=== PATIENT | female | born 1990 | race Caucasian/White ===

== ENCOUNTER 2022-05-31 19:36 | Inpatient (IN) ==
[2022-05-31] MEDS ORDERED: TRANEXAMIC ACID 1,000 MG in SODIUM CHLORIDE 0.9% 100 ML IV PRN (20:49)
[2022-05-31] MEDS ORDERED: BUTORPHANOL 2 MG/ML VIAL IV PRN (20:49)
[2022-05-31] MEDS ORDERED: METHYLERGONOVINE 0.2 MG/1 ML AMP IM PRN (20:49)
[2022-05-31] MEDS ORDERED: ONDANSETRON 4 MG/2 ML VIAL IV PRN (20:49)
[2022-05-31] MEDS ORDERED: miSOPROStoL 200 MCG TABLET RECTAL PRN (20:49)
[2022-05-31] MEDS ORDERED: OXYTOCIN/LR 20 UNIT/1,000 ML BAG IV ONE (20:49)
[2022-05-31] MEDS ORDERED: CARBOPROST TROMETHAMINE 250 MCG/ML AMP IM PRN (20:49)
[2022-05-31] MEDS ORDERED: MEPERIDINE 50 MG/1 ML VIAL IV PRN (20:49)
[2022-05-31 21:00] LABS: Basophils % 0.2 % (0.0-0.8); Eosinophils # 0.1 10*3/uL (0.0-0.87); Eosinophils % 1.1 % (0.00-10.9); Hemoglobin 10.8 GM/DL (12.0-16.0); Immature Granulocytes % 0.3 %; Immature Granulocytes Absolute 0.02 #; Lymphocytes # 1.4 10*3/uL (1.4-4.0); Lymphocytes % 20.8 % (21.3-54.2); Mean Corpuscular HGB Conc 32.7 GM/DL (32-36); Mean Corpuscular Volume 85.3 FL (87-102); Mean Platelet Volume 10.9 FL (9.6-12.0); Monocytes # 0.4 10*3/uL (0.11-0.8); Monocytes % 6.5 % (1.7-12.7); Neutrophils % 71.1 % (38.7-73.9); Platelet Count 174 T/CUMM (130-400); Red Blood Count 3.87 MC/CUMM (3.8-5.5); Red Cell Distribution Width 13.6 % (9.3-17.3); White Blood Count 6.6 T/CUMM (4-12)
[2022-05-31] MEDS: diphenhydrAMINE CAP 50 MG CAPSULE PO PRN (22:21)
[2022-06-01] MEDS ORDERED: hydrOXYzine HCL 25 MG/1 ML VIAL IM PRN (02:23)
[2022-06-01] MEDS ORDERED: ePHEDrine 50 MG/ML VIAL IV PRN (02:23)
[2022-06-01] MEDS ORDERED: CITRIC ACID/SODIUM CITRATE 30 ML UDCUP PO ONE (02:23)
[2022-06-01] MEDS ORDERED: LACTATED RINGERS 1,000 ML IV ONE (02:23)
[2022-06-01] MEDS ORDERED: FAMOTIDINE 20 MG/2 ML VIAL IV ONE (02:23)
[2022-06-01] MEDS: fentaNYL 2 MCG/ROPIV 0.2% EPID 100 ML EPIDURAL SCH ×2 (04:10→11:25)
[2022-06-01] MEDS: LACTATED RINGERS 1,000 ML IV SCH ×2 (04:11→12:11)
[2022-06-01] MEDS: OXYTOCIN/LR 20 UNIT/1,000 ML BAG IV SCH ×2 (05:00→16:44)
[2022-06-01 05:25] LABS: Bilirubin,Urine Negative (Negative); Blood, Urine Negative (Negative); Glucose,Urine (UA) Negative (Negative); Ketones,Urine Negative (Negative); Mucus,Urine Occasional /LPF (Occasional); Nitrite,Urine Negative (Negative); Protein,Urine Negative (Negative); RBC,Urine 1 /HPF (0-4); Squamous Epithelial Cell,Urine Occasional /HPF (0-10); Urine Appearance Clear (Clear); Urine Color Yellow (Yellow); Urine Specific Gravity > 1.030 (1.001-1.035); Urine Urobilinogen 0.2 eU/dL (<2.0); Urine pH 6.5 (4.5-8.0)
[2022-06-01] MEDS: diphenhydrAMINE CAP 50 MG CAPSULE PO PRN (07:30)
[2022-06-01] MEDS ORDERED: miSOPROStoL 200 MCG TABLET ONE (10:27)
[2022-06-01] MEDS ORDERED: CARBOPROST TROMETHAMINE 250 MCG/ML AMP IM ONE (10:28)
[2022-06-01] MEDS ORDERED: METHYLERGONOVINE 0.2 MG/1 ML AMP ONE (10:28)
[2022-06-01] MEDS ORDERED: ACETAMINOPHEN 500 MG TABLET PO ONE (12:00)
[2022-06-01 13:24] LABS: Cord Arterial Blood HCO3 19.5 MMOL/L
[2022-06-01 13:26] LABS: Cord Venous Blood HCO3 20.4 MMOL/L; Cord Venous Blood PCO2 46.2 MMHG; Cord Venous Blood PO2 21.1
[2022-06-01] MEDS ORDERED: DIPH/TET/ACEL PERT BOOSTER VACCINE 0.5 ML VIAL IM ONE (16:55)
[2022-06-01] MEDS ORDERED: MEASLES/MUMPS/RUBELLA VACCINE 0.5 ML VIAL SUBCUT ONE (16:55)
[2022-06-01] MEDS ORDERED: OXYTOCIN/LR 20 UNIT/1,000 ML BAG IV ONE (16:55)
[2022-06-01] MEDS ORDERED: BISACODYL 10 MG SUPP RECTAL PRN (16:55)
[2022-06-01] MEDS ORDERED: HYDROCORTISONE 2.5% RECTAL CREAM 30 GM TUBE TOP PRN (16:55)
[2022-06-01] MEDS ORDERED: RHO(D) IMMUNE GLOBULIN 300 MCG SYRINGE IM ONE (16:55)
[2022-06-01] MEDS ORDERED: LANOLIN 50% CREAM 0.3 OZ TUBE TOP PRN (16:55)
[2022-06-01] MEDS ORDERED: ONDANSETRON 4 MG/2 ML VIAL IV PRN (16:55)
[2022-06-01] MEDS ORDERED: ACETAMINOPHEN 325 MG TABLET PO PRN (16:55)
[2022-06-01] MEDS ORDERED: oxyCODONE/ACETAMINOPHEN 5-325 MG TABLET PO PRN ×2 (16:55)
[2022-06-01] MEDS: IBUPROFEN 800 MG TABLET PO PRN (17:36)
[2022-06-01] MEDS: DOCUSATE SODIUM 100 MG CAPSULE PO SCH (21:15)
[2022-06-01] MEDS: BENZOCAINE 20%/MENTHOL 0.5% SPRAY 56 GM CAN TOP PRN (21:50)
[2022-06-01] MEDS: WITCH HAZEL PADS 100/JAR TOP PRN (21:51)
[2022-06-02] MEDS: IBUPROFEN 800 MG TABLET PO PRN ×4 (01:29→23:24)
[2022-06-02 08:19] LABS: Basophils % 0.2 % (0.0-0.8); Eosinophils # 0.1 10*3/uL (0.0-0.87); Hematocrit 29.5 VOL% (35.7-47.0); Hemoglobin 9.5 GM/DL (12.0-16.0); Immature Granulocytes % 0.6 %; Immature Granulocytes Absolute 0.06 #; Lymphocytes # 1.6 10*3/uL (1.4-4.0); Mean Corpuscular HGB Conc 32.2 GM/DL (32-36); Mean Corpuscular Volume 86.5 FL (87-102); Mean Platelet Volume 10.9 FL (9.6-12.0); Monocytes # 0.7 10*3/uL (0.11-0.8); Neutrophils % 76.2 % (38.7-73.9); Platelet Count 156 T/CUMM (130-400); Red Blood Count 3.41 MC/CUMM (3.8-5.5); Red Cell Distribution Width 13.7 % (9.3-17.3); White Blood Count 10.5 T/CUMM (4-12)
[2022-06-02] MEDS: DOCUSATE SODIUM 100 MG CAPSULE PO SCH ×2 (08:33→23:22)
[2022-06-02] MEDS: FERROUS SULFATE 325 MG TABLET PO SCH ×2 (09:05→23:22)
[2022-06-02] MEDS: WITCH HAZEL PADS 100/JAR TOP PRN (09:05)
[2022-06-02] MEDS: BENZOCAINE 20%/MENTHOL 0.5% SPRAY 56 GM CAN TOP PRN (14:28)
[2022-06-02] MEDS ORDERED: SIMETHICONE CHEW 80 MG TABLET PO PRN (23:45)
[2022-06-03] MEDS: IBUPROFEN 800 MG TABLET PO PRN (07:04)
[2022-06-03 09:02] VITALS: BP 108/65
[2022-06-03] MEDS: FERROUS SULFATE 325 MG TABLET PO SCH (09:12)
[2022-06-03] MEDS: DOCUSATE SODIUM 100 MG CAPSULE PO SCH (09:12)
== END 2022-06-03 13:34 | disposition home or self-care (01) | DRG 807 ==
LOC: N.LDOUT 19:36 → N.LD 19:38 → N.OB 06-01 16:53
PROVIDERS: ADMIT Specialist; ATTEND Specialist